=== PATIENT | male | born 1980 | race African-American/Black ===

== ENCOUNTER 2016-11-30 01:16 | Emergency (ER) | payer SELFPAY ==
[~2016-11-30] VITALS: Ht 182.9 cm; Wt 73.0 kg
[2016-11-30] MEDS ORDERED: SODIUM CHLORIDE 0.9% 1,000 ML IV ONE (02:46)
[2016-11-30] MEDS ORDERED: LORAZEPAM 2MG/ML CPJ IV STA (02:46)
[2016-11-30 03:20] LABS: BASOPHILS % 0.7 % (0.0-2.0); EOSINOPHILS % 2.3 % (0.0-5.0); HEMATOCRIT. 45.2 % (42.0-52.0); HEMOGLOBIN. 15.8 g/dL (14.0-18.0); LYMPHOCYTES % 35.6 % (20.0-50.0); MEAN CORPUSCULAR HEMOGLOBIN 31.5 pg (28.0-32.0); MEAN PLATELET VOLUME 8.6 fl (7.4-10.4); MONOCYTES % 4.8 % (2.0-8.0); NEUTROPHILS % 56.6 % (40.0-76.0); PLATELET 245 x1000/uL (130-400); RED BLOOD CELL COUNT 5.02 mill/uL (4.7-6.1)
[2016-11-30 03:24] LABS: PROTHROMBIN TIME 10.5 sec (9.4-11.6)
[2016-11-30 03:30] LABS: AMMONIA 23 uMol/L (<32)
[2016-11-30] MEDS ORDERED: ZIPRASIDONE MESYLATE 20MG/VIAL IM ONE (03:30)
[2016-11-30 03:34] LABS: CARBON DIOXIDE 24 mEq/L (21-32); CHLORIDE 108 mEq/L (98-107); CREATINE KINASE 235 IU/L (39-308); ETHANOL BLOOD 290 mg/dL; TROPONIN I < 0.02 ng/mL (0.00-0.04)
[2016-11-30 03:45] VITALS: BP 0/0
[2016-11-30] MEDS ORDERED: SODIUM CHLORIDE 0.9% 1000ML BAG (SEPSIS BOLUS) IV ONE (04:45)
== END 2016-11-30 03:55 | disposition left against medical advice (07) ==
LOC: ER 01:16
DX: F91.8 Other conduct disorders (principal); F12.10 Cannabis abuse, uncomplicated; F17.200 Nicotine dependence, unspecified, uncomplicated
CPT/HCPCS: 71010; 80053; 80307; 82140; 82550; 83605; 83690; 83880; 84443; 84484; 85025; 85610; 99285; G0482; J7030